=== PATIENT | female | born 1970 | race Caucasian/White ===

== ENCOUNTER → 2017-01-07 | Outpatient (CLI) | payer OTHER | LOC: FIMAGING 12:44 | PROVIDERS: ATTEND Obstetrics & Gynecology | DX: Z12.31 Encounter for screening mammogram for malignant neoplasm of breast (principal); Z80.3 Family history of malignant neoplasm of breast | CPT/HCPCS: G0202 ==

== ENCOUNTER → 2017-01-15 | Outpatient (CLI) | payer OTHER | LOC: FIMAGING 12:22 | PROVIDERS: ATTEND Obstetrics & Gynecology | DX: R92.8 Other abnormal and inconclusive findings on diagnostic imaging of breast (principal) | CPT/HCPCS: G0206 ==

== ENCOUNTER 2018-07-01 05:49 | Day surgery (SDC) | payer OTHER ==
--- NOTE | 2018-06-29 17:36 | GHP ---
[f rep st] PREOP HISTORY AND PHYSICAL DATE OF ADMISSION: 07/01/2018 DATE OF SURGERY: 07/01/2018. PREOPERATIVE DIAGNOSIS: Embedded arm of a Paragard intrauterine device. SURGERY TO BE PERFORMED: Hysteroscopy, dilation and removal of an embedded IUD. SURGEON: Kateryna Lal MD HISTORY OF PRESENT ILLNESS: Brook is a 47-year-old 2, para 1-0-1-1, who has had a Paragard I UD that was originally placed in 2007. She has been having irregular cycles and not had a menses for about 3 months, on and off hot flashes, suspicious for perimenopause, possible early menopause. Simone Aquino was over 10 years old and she wished to have the ParaGard removed. Attempted removal was perfo rmed 02/26/2018. The strings were gently grasped and there was resistance with a tug. The left arm and the stem of the IUD were removed, but there was 1 arm retained in the uterus. I attempted remova l in the office under ultrasound guidance with premedication with Cytotec in April, and this was u nsuccessful. She was unable to tolerate the exam, and so we decided to proceed with surgery for it w ith a hysteroscopy and removal under ultrasound guidance in the operating room. The patient is not c urrently having pain or issues with the embedded IUD arm. She has continued to have irregular cycles . In April and May she had very heavy cycles with significant cramping and bleeding; was not sure if it was related to the IUD or just perimenopause. No cramping or bleeding now and no dyspare unia. She is concerned about the embedded IUD arm and wishes to have it removed. I have reassured h er that it is likely not going to hurt her, but we will attempt to remove it with hysteroscopic johan lovett. PAST MEDICAL HISTORY: She has hypercholesterolemia and some history of anxiety. She is predisposed to high a hematocrit, however, she has had a full workup at the [facility] and it is not considered to be hemochromatosis and she is followed closely. PAST OBSTETRICAL HISTORY: She had 1 , a viable male in 2007, who weighed 6 pounds 12 ounces . No complications with the . She had previously had a D and C for a spontaneous i n 2006. PAST SURGICAL HISTORY: She had her and a D and C secondary to a miscarriage. She had an um bilical hernia repair as a kid, and she has had an endoscopy secondary to gastroesophageal reflux dis ease. ALLERGIES: Cipro gives her dizziness. She is also allergic to penicillin and amoxicillin that gives her a rash. MEDICATIONS: Include probiotics, vitamin D, glucosamine and chondroitin. SOCIAL HISTORY: She is . She lives with her and her son. She works as a potter. julio denies tobacco; alcohol 2 times a week. Marijuana use is approximately 2 times a week and she has 2 cups of coffee a day. Moderate exercise. FAMILY HISTORY: Her dad has coronary artery disease. Her mom has had a stroke. Paternal grandmothe r has breast cancer in her 70s. OBJECTIVE: VITAL SIGNS: Today blood pressure is 110/70, weight is 140. GENERAL: She is a well-dev eloped, well-nourished white female in no acute distress. LUNGS: Clear to auscultation bilaterally. HEART: Regular rate and rhythm. No murmur. ABDOMEN: Soft, nondistended, nontender. Normal lilia l sounds. PELVIC EXAM: Normal external genitalia. Normal nulliparous cervix. Uterus is anteverted , anteflexed, mobile, nontender on exam. An ultrasound revealed a persistent right IUD arm embedded in the endometrial canal at the level of the fundus. Ovaries are normal. ASSESSMENT AND PLAN: A 47-year-old who is a 2, para 1, with an embedded ParaGard intrauterin e device arm for hysteroscopic removal. The patient was consented for the procedure. She understood the risks and benefits, the risks including bleeding, infection, damage to the uterus including poss ible perforation, damage to other organs if perforation was to occur, need for additional procedures or inability to remove the arm and needing to leave the arm in place. She understood these risks and benefits agreed to proceed. /[id number]/MODL
--- NOTE | 2018-07-01 05:41 | POSTANESTH ---
Post Anesthetic Evaluation Cardiovascular Status: Similar to Pre-Op Cond, Tx Over/Under Hydration (SBP in the 80s, stable but low. Giving IVF bolus. Pt mentating appropriately and denies dizziness or nausea.) Level of Consciousness/Mental Status: Can Participate in Eval, Mildly Sleepy, Arousable Pain Control: Adequate, Prn Tx Ordered Nausea/Vomiting Control: Adequate, Prn Tx Ordered Notes: See anesthesia record for vagal episode intra-op.
--- NOTE | 2018-07-01 05:45 | PDANEPAE ---
ANE History of Present Illness 47 yo female with retained IUD arm for hysteroscopy and removal. ANE Past Medical History - Cardiovascular History Hx Hypertension: No Hx Arrhythmias: No Hx Chest Pain: No Hx Coronary Artery / Peripheral Vascular Disease: No Hx CHF / Valvular Disease: No Hx Palpitations: No Cardiovascular History Comment: hypercholesterolemia - Pulmonary History Hx COPD: No Hx Asthma/Reactive Airway Disease: No Hx Recent Upper Respiratory Infection: No Hx Oxygen in Use at Home: No Hx Sleep Apnea: No Sleep Apnea Screening Result - Last Documented: Negative - Neurologic History Hx Cerebrovascular Accident: No Hx Seizures: No Hx Dementia: No - Endocrine History Hx Diabetes: No Hypothyroid: No Hyperthyroid: No Obesity: no - Renal History Hx Renal Disorders: No - Liver History Hx Hepatic Disorders: No - Neurological & Psychiatric Hx Hx Neurological and Psychiatric Disorders: Yes Neurological / Psychiatric History Comment: anxiety - Cancer History Hx Cancer: No - Congenital Disorder History Hx Congenital Disorders: No - GI History GERD: no Hx Gastrointestinal Disorders: No - Other Health History Other Health History: chronically borderline high H/H, elevated iron - last labs were 07/19; work-up for hemochromatosis negative. menorrhagia recently ( leonila-menopausal?) - Chronic Pain History Chronic Pain: No - Surgical History Prior Surgeries: . MISSED AB 2006. UMBILICAL HERNIA. EGD ANE Review of Systems Review of Systems: - Exercise capacity METS (RN): 6 METS - Systems EENMT: Reports: nose congestion (a few days of nasal congeston/sinus congestion and GIBSON; no fevers/cough) Cardiac: Reports: no symptoms Respiratory: Reports: no symptoms ANE Patient History - Allergies Allergies/Adverse Reactions: ciprofloxacin [From Cipro] Allergy (Verified 06/28/18 10:53) DIZZINESS Penicillins Allergy (Verified 06/28/18 10:54) Rash - Home Medications Home Medications: Herbals/Supplements -Info Only DAILY 06/28/18 [Last Taken Unknown] Ibuprofen PRN 06/28/18 [Last Taken 06/28/18 04:00] Valtrex PRN 06/28/18 [Last Taken Unknown] - NPO status NPO Since - Liquids (Date): 07/01/18 NPO Since - Liquids (Time): 05:00 (Gatorade) - Anes Hx Anes Hx: no prior problems - Smoking Hx Smoking Status: Former smoker Marijuana use: Yes - Alcohol Use Alcohol Use: Occasionally (2/week) - Family Anes Hx Family Anes Hx: neg - N/A ANE Labs/Vital Signs - Vital Signs Vital Signs: reviewed preoperatively; see RN documention for details Height: 152.4 cm Weight: 61.235 kg ANE Physical Exam - Airway Mallampati Score: Class 2 (short TMD) - Pulmonary Pulmonary: no rales or rhonchi, clear to auscultation - Cardiovascular Cardiovascular: regular rate and rhythym - ASA Status ASA Status: II ANE Anesthesia Plan Anesthesia Plan: GA w LMA Total IV Anesthesia: Yes
[2018-07-01] MEDS ORDERED: LR 1,000 ML IV ONE (06:07)
[2018-07-01] MEDS ORDERED: MIDAZOLAM 2 MG/2 ML VIAL IVP ONE (06:47)
[2018-07-01] MEDS ORDERED: SILVER NITRATE APPLICATOR 1 APPL TP ONE (07:08)
[2018-07-01] MEDS ORDERED: DEXAMETHASONE 4 MG/ML VIAL ONE (07:11)
[2018-07-01] MEDS ORDERED: LIDOCAINE 2% 5 ML SDV ONE (07:11)
[2018-07-01] MEDS ORDERED: fentaNYL 100 MCG/2 ML INJ ONE ×2 (07:11→08:33)
[2018-07-01] MEDS ORDERED: PROPOFOL/EMULSION 500 MG/50 ML BOTTLE IV ONE ×2 (07:12→08:01)
--- NOTE | 2018-07-01 07:12 | PDHPUP ---
History & Physical Update H&P update statement: This history and physical update is based on an assessment of the patient which was completed after admission or registration (within 24 hours), but prior to the surgery/procedure. H&P update: H&P reviewed & patient examined, no change in patient's condition since H&P completed
[2018-07-01] MEDS ORDERED: BUPIVACAINE/EPI 0.5% 30 ML SDV ONE (07:49)
[2018-07-01] MEDS ORDERED: ePHEDrine SULFATE 25 MG/5 ML SYR ONE (08:09)
[2018-07-01] MEDS ORDERED: GLYCOPYRROLATE 0.2 MG/1 ML VIAL ONE ×3 (08:16→09:25)
[2018-07-01] MEDS ORDERED: ONDANSETRON 4 MG/2 ML VIAL ONE (09:02)
[2018-07-01] MEDS ORDERED: NEOSTIGMINE METHYLSULFATE 5 MG/5 ML SYR ONE (09:12)
[2018-07-01] MEDS ORDERED: ACETAMINOPHEN 500 MG TAB PO PRN (09:14)
[2018-07-01] MEDS ORDERED: ALBUTEROL 3 ML DEYVIAL IH PRN (09:14)
[2018-07-01] MEDS ORDERED: oxyCODONE IR 5 MG TAB PO PRN (09:14)
[2018-07-01] MEDS ORDERED: PROMETHAZINE HCL 25 MG/ML INJ IVP PRN (09:14)
[2018-07-01] MEDS ORDERED: LR 500 ML IV PRN (09:14)
[2018-07-01] MEDS ORDERED: fentaNYL 100 MCG/2 ML INJ IVP PRN (09:14)
[2018-07-01] MEDS ORDERED: NALOXONE HCL 0.4 MG/ML INJ IVP PRN (09:14)
[2018-07-01] MEDS ORDERED: DIAZEPAM 5 MG/ML 1 ML SYR IVP PRN (09:14)
[2018-07-01] MEDS ORDERED: CLINDAMYCIN 900 MG/DEXTROSE/50 ML BAG IV ONE (09:18)
[2018-07-01] MEDS ORDERED: IBUPROFEN 600 MG TAB PO PRN (09:39)
--- NOTE | 2018-07-01 09:39 | POSTOPPROG ---
Post Op Note Date of Operation: 07/01/18 Surgeon: Kateryna Lal German Tutor: Dr. Marge Welsh Anesthesiologist: Dr. Rebecca Turner Anesthesia: GET(General Endotracheal) Pre-op Diagnosis: embedded IUD arm Post-op Diagnosis: embedded IUD arm, uterine perforation Procedure: Hysteroscopy D and C, Laparascopic cauterization of uterine perforation U/s Findings: embedded IUD arm, uterine perforation at fundus Inf/Abcess present in the surg proc area at time of surgery?: No Depth: Organ Space EBL: 50-100 Total fluids administered: 2200 Complications: uterine perforation at fundus normal uterus, tubes and ovaries intact bowel, bladder no damage to other organs Specimen(s): none
[2018-07-01] MEDS ORDERED: CLINDAMYCIN 900 MG/DEXTROSE 50 ML IV ONE (09:51)
--- NOTE | 2018-07-01 10:24 | GOP ---
[f rep st] OPERATIVE REPORT DATE OF OPERATION: 07/01/2018 SURGEON: Kateryna Lal MD BASE FILLER OPERATOR: Dr. Marge eWlsh. ANESTHESIA: General anesthesia. ANESTHESIOLOGIST: Dr. Rebecca Stern. PREOPERATIVE DIAGNOSIS: Imbedded Paragard intrauterine device arm. POSTOPERATIVE DIAGNOSIS: 1. Imbedded Paragard intrauterine device arm. 2. Uterine perforation. PROCEDURE PERFORMED: 1. Hysteroscopy. 2. Dilation and curettage. 3. Ultrasound-guided removal of the embedded intrauterine device arm. 4. Laparoscopic repair of the uterine perforation. FINDINGS: SPECIMENS: There will be no pathologic specimen. The IUD arm was removed and discarded. ESTIMATED BLOOD LOSS: For the procedure was 50 cc. INDICATIONS: The patient is a 47-year-old 2, para 1-0-1-1, who had a Paragard IUD placed in 2007. She has been having irregular cycles and perimenopausal symptoms. The Paragard was over 10 ye ars old, and she wished to have the Paragard IUD removed. The IUD removal was performed on in the office, and with gentle traction, the IUD broke and the left arm and the stem were removed, but the right arm was embedded in the uterine endometrium. We attempted ultrasound-guided removal in the office and patient was not able to tolerate, so the decision was made to take her to the operati ng room for hysteroscopy to remove the IUD arm. The patient had travel plans and the surgery was del ayed for several months. She had no pain or issues with the IUD arm. We repeated an ultrasound 2 da ys prior to surgery to make sure that it was still retained, and the ultrasound did reveal the IUD ar m in the right myometrium into the endometrium at the level of the fundus. The patient was consented for the procedure. She understood the risks and benefits, the risks including bleeding, infection, damage to the uterus including possible perforation, damage to other organs if perforation were to oc cur, need for additional procedures, and inability to remove the arm. She understood these risks and benefits and agreed to proceed. DESCRIPTION OF PROCEDURE: The patient was taken to the operating room where she was placed under gen eral anesthesia without difficulty. She was prepped and draped in the dorsal lithotomy position. Af ter a WHO time-out was performed, an open-sided speculum was placed in the vagina, and a single-tooth tenaculum was used to grasp the anterior lip of the cervix. The uterus was sounded. The cervix was gently dilated with Tang dilators to a #6. The hysteroscope fluid management system was balanced a nd calibrated. The hysteroscope was then gently advanced from the cervix to the fundus, and upon imm ediate inspection in the uterine cavity, there was a dramatic increase in fluid deficit and perceived a hole at the level of the uterine fundus. The hysteroscope was immediately removed, and we prepare d to do diagnostic laparoscopy to examine the uterus. After injection with Marcaine, a 5 mm skin incision was made in the infraumbilical skin fold, and the 5 mm atraumatic port was placed through the infraumbilical incision. The patient was placed in [facility], and immediately inspecting, there was saline in the pelvis in the cul-de-sac and an area o f perforation at the level of the fundus was visualized and it was slightly oozing. After injection of Marcaine, a 5 mm skin incision was placed in the left lower quadrant, and with direct visualizatio n, an atraumatic 5 mm port was placed through this incision. The perforated area was cauterized with a [place] and bipolar cautery and hemostasis was assured. My transport assistant, Marge Welsh, came in to as sist. She examined laparoscopically and used the abdominal probe ultrasound to visualize the uterus. I went back vaginally, placed an open-sided speculum, a single-tooth tenaculum, and uterine sound t o visualize the uterus with the ultrasound and to examine the location of the IUD arm. After several attempts of localization, I was able to feel the IUD arm with sharp curettage at the right fundal ar ea and then grasped it with an Allis grasper under ultrasound guidance, and then it was successfully removed. There was a small area of perforation then noticed at the very top of the fundus. This was also cauterized laparoscopically and good hemostasis was assured. The pelvis was copiously irrigated and ensured that there was no further damage to any other organs, the bowel, the bladder, peritoneum, any other areas, and we placed Rosita over the uterine perforatio n site. The pneumoperitoneum was allowed to escape, and the skin incisions were closed with 4-0 [place] cryl, and Steri-Strips and Band-Aids were applied. The uterine tenaculum was removed. There was goo d hemostasis at the level of the cervix, and the Richter catheter were removed. The patient tolerated the procedure well. Sponge, lap, needle, and instrument counts were correct x2, on both the hysteros copic, as well as the laparoscopic, sets. The patient went to the recovery room in good condition. IV FLUID REPLACEMENT: 1200 cc. HYSTEROSCOPIC FLUID DEFICIT: Finally was 940 cc. URINE OUTPUT: 200 cc. /[id number]/MODL
[2018-07-01 11:55] VITALS: BP 103/72
== END 2018-07-01 11:56 | disposition home or self-care (01) ==
LOC: FSGY 05:49
PROVIDERS: ATTEND Obstetrics & Gynecology
DX: Z18.2 Retained plastic fragments (principal); N99.71 Accidental puncture and laceration of a genitourinary system organ or structure during a genitourinary system procedure; E78.00 Pure hypercholesterolemia, unspecified
CPT/HCPCS: J1100; J2250; J2405; J2704; J2710; J3010